=== PATIENT | female | born 1935 | race Caucasian/White ===

== ENCOUNTER 2018-12-18 10:54 | Inpatient (IN) | payer MEDICARE ==
--- NOTE | 2018-12-18 16:48 | PCM.HP ---
<Magda Varghese - Last Filed: 12/18/18 16:43> H&P History of Present Illness - General Date of Service: 12/18/18 Admit Problem/Dx: 83 year old female admitted to hospital for swing bed placement secondary to weakness. She had recently been in the [facility] for new onset of atrial fibrillation. That was able to be medically controlled; however, the patient remains too weak to perform her own ADLs. - Related Data Allergies/Adverse Reactions: Allergies Allergy/AdvReac Type Severity Reaction Status Date / Time No Known Allergies Allergy Unverified 12/18/18 15:41 Home Medications: Home Meds Amiodarone [Cordarone] 200 mg PO BID 12/18/18 [History] Apixaban [Eliquis] 2.5 mg PO BID 12/18/18 [History] Calcitriol 0.25 mcg PO DAILY 12/18/18 [History] Clopidogrel [Plavix] 75 mg PO DAILY 12/18/18 [History] Docusate Sodium [Colace] 100 mg PO BID 12/18/18 [History] Fluticasone Propionate [Flonase] 2 sprays NS DAILY 12/18/18 [History] Furosemide 40 mg PO DAILY 12/18/18 [History] Gabapentin [Neurontin] 100 mg PO BID 12/18/18 [History] Insulin Glarg,Human.Rec.Analog [Lantus Solostar] 22 unit SUBCUT BEDTIME [History] Insulin Lispro [HumaLOG] 4 unit SQ WITHDINNER 12/18/18 [History] Insulin Lispro [HumaLOG] 6 unit SQ WITHBREAKFAST 12/18/18 [History] Ipratropium [Atrovent HFA Inh] 2 puff INH QID PRN 12/18/18 [History] Levothyroxine [Synthroid] 88 mcg PO 0600 12/18/18 [History] Metoprolol Tartrate 25 mg PO BID 12/18/18 [History] Mirtazapine 30 mg PO BEDTIME 12/18/18 [History] Nicotine [Nicotine Patch] 21 mg TD DAILY 12/18/18 [History] Omeprazole 20 mg PO BID 12/18/18 [History] Polyethylene Glycol 3350 [MiraLAX] 17 gm PO DAILY PRN 12/18/18 [History] Travoprost [Travatan Z 0.004% Oph Soln] 1 drop EYEBOTH BEDTIME 12/18/18 [ History] atorvaSTATin [Lipitor] 80 mg PO BEDTIME 12/18/18 [History] tiZANidine [Zanaflex] 2 mg PO BEDTIME 12/18/18 [History] Social & Family History - Tobacco Use Smoking Status *Q: Former Smoker Years of Tobacco use: 60 Packs/Tins Daily: 1 Used Tobacco, but Quit: Yes Month/Year Tobacco Last Used: October 2018 Tobacco Use Comment: stopped smoking since she was on the nicotine patch Second Hand Smoke Exposure: No - Caffeine Use Caffeine Use: Reports: Coffee, Soda - Recreational Drug Use Recreational Drug Use: No H&P Review of Systems - Review of Systems: Review Of Systems: See Below General: Reports: Weakness. Denies: Fever, Chills HEENT: Reports: No Symptoms Pulmonary: Denies: Shortness of Breath, Cough Cardiovascular: Denies: Chest Pain, Palpitations Gastrointestinal: Denies: Abdominal Pain, Diarrhea, Nausea, Vomiting Genitourinary: Denies: Dysuria, Frequency, Burning Musculoskeletal: Reports: No Symptoms Skin: Reports: No Symptoms Psychiatric: Reports: No Symptoms Neurological: Reports: No Symptoms Exam - Exam Exam: See Below - Vital Signs Vital Signs: Last Vital Signs Temp 36.7 C 12/18/18 15:20 Pulse 77 12/18/18 15:20 Resp 18 12/18/18 15:20 BP 122/70 12/18/18 15:20 Pulse Ox 94 L 12/18/18 15:20 Weight: 129 lb - Exam Quality Assessment: Supplemental Oxygen General: Alert, Oriented HEENT: EOMI, TMs Clear Neck: Supple, Trachea Midline Lungs: Clear to Auscultation, Normal Respiratory Effort Cardiovascular: Regular Rate, Regular Rhythm, Normal S1, Normal S2 GI/Abdominal Exam: Normal Bowel Sounds, Soft, Non-Tender Back Exam: No: CVA Tenderness (R), CVA Tenderness (L) Extremities: No Pedal Edema - Problem List (1) Atrial fibrillation SNOMED Code(s): 68704585 ICD Code: I48.91 - UNSPECIFIED ATRIAL FIBRILLATION Status: Acute Current Visit: Yes (2) Diabetes SNOMED Code(s): 42419861 ICD Code: E11.9 - TYPE 2 DIABETES MELLITUS WITHOUT COMPLICATIONS Status: Acute Current Visit: Yes (3) Weakness SNOMED Code(s): 10798531 ICD Code: R53.1 - WEAKNESS Status: Acute Current Visit: Yes (4) Hypercholesteremia SNOMED Code(s): 15029194 ICD Code: E78.00 - PURE HYPERCHOLESTEROLEMIA, UNSPECIFIED Status: Acute Current Visit: Yes Problem List Initiated/Reviewed/Updated: Yes Orders Last 24hrs: 1. Swing bed placement 2. DNR/DNI 3. Up with assist 4. PT, OT 5. Diabetic diet 6. Continue home medications <Rory Smith - Last Filed: 12/19/18 16:42> H&P History of Present Illness - General Admit Problem/Dx: Admission Diagnosis/Problem Admission Diagnosis/Problem Rehabilitation therapy Exam - Vital Signs Vital Signs: Last Vital Signs Temp 97.7 F 12/19/18 07:29 Pulse 80 12/19/18 08:51 Resp 18 12/19/18 07:29 BP 113/60 12/19/18 08:51 Pulse Ox 94 L 12/19/18 07:29 - Patient Data Lab Results Last 24 hrs: Laboratory Results - last 24 hr 12/18/18 12/19/18 Range/Units 17:24 06:03 POC Glucose 278 H 151 H D (80-116) mg/dL - Problem List (1) Atrial fibrillation SNOMED Code(s): 18514197 ICD Code: I48.91 - UNSPECIFIED ATRIAL FIBRILLATION Status: Acute Current Visit: Yes (2) Weakness SNOMED Code(s): 18501904 ICD Code: R53.1 - WEAKNESS Status: Acute Current Visit: Yes Orders Last 24hrs: Active Orders 24 hr Category Date Time Status Patient Status [ADT] Routine ADT 12/18/18 16:51 Active Blood Glucose Check, Bedside [RC] BIDMEALS Care 12/18/18 16:51 Active Oxygen Therapy [RC] PRN Care 12/18/18 16:51 Active Up With Assistance [RC] ASDIRECTED Care 12/18/18 16:51 Active VTE/DVT Education [RC] Per Unit Routine Care 12/18/18 16:51 Active Vital Signs [RC] 08 Care 12/18/18 16:51 Active OT Evaluation and Treatment [CONS] Routine Cons 12/18/18 16:51 Active PT Evaluation and Treatment [CONS] Routine Cons 12/18/18 16:51 Active Consistent Carbohydrate Diet [DIET] Diet 12/18/18 Dinner Active Amiodarone [Cordarone] Med 12/18/18 21:00 Active 200 mg PO BID Apixaban [Eliquis] Med 12/18/18 21:00 Active 2.5 mg PO BID Calcitriol [Rocaltrol] Med 12/19/18 09:00 Active 0.25 mcg PO DAILY Clopidogrel [Plavix] Med 12/19/18 09:00 Active 75 mg PO DAILY Docusate Sodium [Colace] Med 12/18/18 21:00 Active 100 mg PO BID Fluticasone Propionate [Flonase] Med 12/19/18 09:00 Active 0 gm NASBOTH DAILY Furosemide [Lasix] Med 12/19/18 09:00 Active 40 mg PO DAILY Gabapentin [Neurontin] Med 12/18/18 21:00 Active 100 mg PO BID Insulin Glarg,Human.Rec.Analog [LantUS Solostar] Med 12/18/18 21:00 Active 22 units SUBCUT BEDTIME Insulin Lispro [HumaLOG] Med 12/18/18 18:00 Active 4 unit SUBCUT WITHDINNER Insulin Lispro [HumaLOG] Med 12/19/18 08:00 Active 6 unit SUBCUT WITHBREAKFAST Ipratropium [Atrovent HFA] Med 12/18/18 16:53 Active 0 gm INH QID PRN Levothyroxine [Synthroid] Med 12/19/18 06:00 Active 88 mcg PO 0600 Metoprolol Tartrate [Lopressor] Med 12/18/18 21:00 Active 25 mg PO BID Mirtazapine [Remeron] Med 12/18/18 21:00 Active 30 mg PO BEDTIME Nicotine [Habitrol] Med 12/19/18 09:00 Active 21 mg TRDERM DAILY Pantoprazole [ProTONIX] Med 12/18/18 21:00 Active 40 mg PO BID Polyethylene Glycol 3350 [MiraLAX] Med 12/18/18 16:53 Active 17 gm PO DAILY PRN Travoprost [Travatan Z 0.004% Ophth Soln] Med 12/18/18 21:00 Active 0 drop EYEBOTH BEDTIME atorvaSTATin [Lipitor] Med 12/18/18 21:00 Active 80 mg PO BEDTIME tiZANidine [Zanaflex] Med 12/18/18 21:00 Active 2 mg PO BEDTIME Resuscitation Status Routine Resus Stat 12/18/18 17:00 Ordered Medication Orders Amiodarone HCl (Cordarone) 200 mg PO BID [facility] Last Admin: 12/19/18 08:49 Dose: 200 mg Admin: 12/18/18 20:04 Dose: 200 mg Apixaban (Eliquis) 2.5 mg PO BID [facility] Last Admin: 12/19/18 08:49 Dose: 2.5 mg Admin: 12/18/18 20:04 Dose: 2.5 mg Atorvastatin Calcium (Lipitor) 80 mg PO BEDTIME [facility] Last Admin: 12/18/18 20:04 Dose: 80 mg Calcitriol (Rocaltrol) 0.25 mcg PO DAILY [facility] Last Admin: 12/19/18 08:52 Dose: 0.25 mcg Clopidogrel Bisulfate (Plavix) 75 mg PO DAILY [facility] Last Admin: 12/19/18 08:51 Dose: 75 mg Docusate Sodium (Colace) 100 mg PO BID [facility] Last Admin: 12/19/18 08:49 Dose: 100 mg Admin: 12/18/18 20:02 Dose: 100 mg Fluticasone Propionate (Flonase) 0 gm NASBOTH DAILY [facility] Last Admin: 12/19/18 08:50 Dose: 2 spray Furosemide (Lasix) 40 mg PO DAILY [facility] Last Admin: 12/19/18 08:51 Dose: 40 mg Gabapentin (Neurontin) 100 mg PO BID [facility] Last Admin: 12/19/18 08:54 Dose: 100 mg Admin: 12/18/18 20:06 Dose: 100 mg Insulin Glargine (Lantus Solostar) 22 units SUBCUT BEDTIME [facility] Last Admin: 12/18/18 20:22 Dose: 22 units Insulin Human Lispro (Humalog) 4 unit SUBCUT WITHDINNER [facility] Last Admin: 12/18/18 17:34 Dose: 4 unit Insulin Human Lispro (Humalog) 6 unit SUBCUT WITHBREAKFAST [facility] Last Admin: 12/19/18 08:48 Dose: 6 units Ipratropium [place] (Atrovent Hfa) 0 gm INH QID PRN PRN Reason: SHORTNESS OF BREATH/WHEEZING Levothyroxine Sodium (Synthroid) 88 mcg PO 0600 [facility] Last Admin: 12/19/18 06:01 Dose: 88 mcg Metoprolol Tartrate (Lopressor) 25 mg PO BID [facility] Last Admin: 12/19/18 08:51 Dose: 25 mg Admin: 12/18/18 20:09 Dose: 25 mg Mirtazapine (Remeron) 30 mg PO BEDTIME [facility] Last Admin: 12/18/18 20:10 Dose: 30 mg Nicotine (Habitrol) 21 mg TRDERM DAILY [facility] Last Admin: 12/19/18 08:50 Dose: 21 mg Travatan Z 0.004% (Ophth Soln *Ptom) 0 drop EYEBOTH BEDTIME [facility] Last Admin: 12/18/18 20:11 Dose: 1 drop Pantoprazole Sodium (Protonix) 40 mg PO BID [facility] Last Admin: 12/19/18 08:52 Dose: 40 mg Admin: 12/18/18 20:10 Dose: 40 mg Polyethylene Glycol (Miralax) 17 gm PO DAILY PRN PRN Reason: Constipation Tizanidine HCl (Zanaflex) 2 mg PO BEDTIME [facility] Last Admin: 12/18/18 20:12 Dose: 2 mg Assessment/Plan Comment:: I attest saw this patient and examined the patient.
[2018-12-18] MEDS ORDERED: Polyethylene Glycol 3350 Powder 17 GM Packet PO PRN (16:53)
[2018-12-18] MEDS ORDERED: IPRATROPIUM INH PRN (16:53)
[2018-12-18] MEDS: Insulin Lispro 100 Unit/ML 3 ML KwikPen SUBCUT SCH (17:34)
[2018-12-18] MEDS: Docusate Sodium 100 MG Cap PO SCH (20:02)
[2018-12-18] MEDS: Amiodarone 200 MG Tab PO SCH (20:04)
[2018-12-18] MEDS: atorvaSTATin 40 MG Tab PO SCH (20:04)
[2018-12-18] MEDS: Apixaban 5 MG Tab PO SCH (20:04)
[2018-12-18] MEDS: Gabapentin 100 MG Cap PO SCH (20:06)
[2018-12-18] MEDS: Metoprolol Tartrate 25 MG Tab PO SCH (20:09)
[2018-12-18] MEDS: Mirtazapine 30 MG Tab PO SCH (20:10)
[2018-12-18] MEDS: Pantoprazole 40 MG Tab.CR PO SCH (20:10)
[2018-12-18] MEDS: TRAVATAN Z 0.004% EYEBOTH SCH (20:11)
[2018-12-18] MEDS: tiZANidine 4 MG Tab PO SCH (20:12)
[2018-12-18] MEDS: Insulin Glargine,Human Rec. Analog 100 Units/ML 3 ML Pen SUBCUT SCH (20:22)
[2018-12-19] MEDS: Levothyroxine 88 MCG Tab PO SCH (06:01)
[2018-12-19] MEDS: Insulin Lispro 100 Unit/ML 3 ML KwikPen SUBCUT SCH ×2 (08:48→17:53)
[2018-12-19] MEDS: Apixaban 5 MG Tab PO SCH ×2 (08:49→21:02)
[2018-12-19] MEDS: Docusate Sodium 100 MG Cap PO SCH ×2 (08:49→21:02)
[2018-12-19] MEDS: Amiodarone 200 MG Tab PO SCH ×2 (08:49→21:02)
[2018-12-19] MEDS: Nicotine 21 MG/24 Hr Patch TRDERM SCH (08:50)
[2018-12-19] MEDS: Fluticasone Propionate Nasal Spray 16 GM Bottle NASBOTH SCH (08:50)
[2018-12-19] MEDS: Clopidogrel 75 MG Tab PO SCH (08:51)
[2018-12-19] MEDS: Metoprolol Tartrate 25 MG Tab PO SCH ×2 (08:51→21:03)
[2018-12-19] MEDS: Furosemide 40 MG Tab PO SCH (08:51)
[2018-12-19] MEDS: Calcitriol 0.25 MCG Cap PO SCH (08:52)
[2018-12-19] MEDS: Pantoprazole 40 MG Tab.CR PO SCH ×2 (08:52→21:02)
[2018-12-19] MEDS: Gabapentin 100 MG Cap PO SCH ×2 (08:54→21:01)
[2018-12-19] MEDS: atorvaSTATin 40 MG Tab PO SCH (21:02)
[2018-12-19] MEDS: Mirtazapine 30 MG Tab PO SCH (21:02)
[2018-12-19] MEDS: tiZANidine 4 MG Tab PO SCH (21:02)
[2018-12-19] MEDS: Insulin Glargine,Human Rec. Analog 100 Units/ML 3 ML Pen SUBCUT SCH (21:04)
[2018-12-19] MEDS: TRAVATAN Z 0.004% EYEBOTH SCH (21:06)
[2018-12-20] MEDS: Levothyroxine 88 MCG Tab PO SCH (06:36)
[2018-12-20] MEDS: Amiodarone 200 MG Tab PO SCH ×2 (08:17→20:47)
[2018-12-20] MEDS: Docusate Sodium 100 MG Cap PO SCH ×2 (08:17→20:47)
[2018-12-20] MEDS: Apixaban 5 MG Tab PO SCH ×2 (08:17→20:47)
[2018-12-20] MEDS: Clopidogrel 75 MG Tab PO SCH (08:18)
[2018-12-20] MEDS: Fluticasone Propionate Nasal Spray 16 GM Bottle NASBOTH SCH (08:18)
[2018-12-20] MEDS: Calcitriol 0.25 MCG Cap PO SCH (08:18)
[2018-12-20] MEDS: Furosemide 40 MG Tab PO SCH (08:18)
[2018-12-20] MEDS: Pantoprazole 40 MG Tab.CR PO SCH ×2 (08:18→20:48)
[2018-12-20] MEDS: Nicotine 21 MG/24 Hr Patch TRDERM SCH (08:19)
[2018-12-20] MEDS: Metoprolol Tartrate 25 MG Tab PO SCH ×2 (08:30→20:48)
[2018-12-20] MEDS: Insulin Lispro 100 Unit/ML 3 ML KwikPen SUBCUT SCH ×2 (08:32→18:08)
[2018-12-20] MEDS: Gabapentin 100 MG Cap PO SCH ×2 (08:35→20:49)
[2018-12-20] MEDS: atorvaSTATin 40 MG Tab PO SCH (20:47)
[2018-12-20] MEDS: Mirtazapine 30 MG Tab PO SCH (20:48)
[2018-12-20] MEDS: TRAVATAN Z 0.004% EYEBOTH SCH (20:49)
[2018-12-20] MEDS: tiZANidine 4 MG Tab PO SCH (20:49)
[2018-12-20] MEDS: Insulin Glargine,Human Rec. Analog 100 Units/ML 3 ML Pen SUBCUT SCH (20:56)
[2018-12-21] MEDS: Levothyroxine 88 MCG Tab PO SCH (05:43)
[2018-12-21] MEDS: Insulin Lispro 100 Unit/ML 3 ML KwikPen SUBCUT SCH (08:58)
[2018-12-21] MEDS: Docusate Sodium 100 MG Cap PO SCH (09:04)
[2018-12-21] MEDS: Apixaban 5 MG Tab PO SCH (09:05)
[2018-12-21] MEDS: Amiodarone 200 MG Tab PO SCH (09:05)
[2018-12-21] MEDS: Fluticasone Propionate Nasal Spray 16 GM Bottle NASBOTH SCH (09:05)
[2018-12-21] MEDS: Furosemide 40 MG Tab PO SCH (09:06)
[2018-12-21] MEDS: Metoprolol Tartrate 25 MG Tab PO SCH (09:06)
[2018-12-21] MEDS: Clopidogrel 75 MG Tab PO SCH (09:07)
[2018-12-21] MEDS: Calcitriol 0.25 MCG Cap PO SCH (09:07)
[2018-12-21] MEDS: Pantoprazole 40 MG Tab.CR PO SCH (09:07)
[2018-12-21] MEDS: Gabapentin 100 MG Cap PO SCH (09:10)
[2018-12-21] MEDS ORDERED: Nicotine 14 MG/24 Hr Patch TRDERM SCH (10:00)
--- NOTE | 2018-12-21 14:27 | DISCH ---
DISCHARGE DATE: 12/21/2018 HISTORY OF PRESENT ILLNESS: Giuliana Garcia is a delightful 83-year-old female admitted to swing bed. An acute care stay at [facility] in [place]. New onset atrial fibrillation. Controlled medically. Inability to continue her return to home status, impaired. During her hospital stay, she was all involved in OT, PT ambulated, medications were adjusted, no complicating health issues. LABORATORY STUDIES: Simply sugars 278, 151, 172, 105, and 229. Insulin adjusted accordingly. PHYSICAL EXAMINATION: VITAL SIGNS: 35.8, 90 and irregular, respirations 14, 95%. GENERAL: Bright, alert, awake, comfortable. NECK: Supple. Thyroid small. CHEST: Clear all lung to. Decreased breath sounds, both lung bases. HEART: Irregularly irregular at 90. ABDOMEN: Benign. EXTREMITIES: Well perfused. Minimal edema. ASSESSMENT: New onset atrial fibrillation, rate controlled. PLAN: Medications and care and treatment appropriate. She was discharged home in a timely fashion. She has an upcoming appointment with her medical provider in [place] at the end of December. SURGICAL PROCEDURES: None. CONSULTATIONS: None. /[id number] JEFF[place]/GISELLA
== END 2018-12-21 11:15 | disposition home or self-care (01) | DRG 948 ==
LOC: FB.MS 15:01
PROVIDERS: ADMIT Family Medicine; ATTEND Family Medicine
DX: R53.1 Weakness (principal); I48.91 Unspecified atrial fibrillation; E78.00 Pure hypercholesterolemia, unspecified; E11.9 Type 2 diabetes mellitus without complications; Z79.4 Long term (current) use of insulin; Z87.891 Personal history of nicotine dependence; Z79.01 Long term (current) use of anticoagulants
CPT/HCPCS: 82962; 97110-GO; 97116-GP; 97161-GP; 97165-GO; 97530-GO; 97535-GO; A9270-GY; J1815; J1815-GY

== ENCOUNTER 2019-09-06 13:00 | Emergency (ER) | payer MEDICARE ==
[2019-09-06] MEDS ORDERED: Acetaminophen 500 MG Tab PO ONE (13:21)
[2019-09-06] MEDS ORDERED: traMADol 50 MG Tab PO ONE (13:21)
--- NOTE | 2019-09-06 15:06 | EDM.PDOC ---
ED HPI GENERAL MEDICAL PROBLEM - General Chief Complaint: Back Pain or Injury Stated Complaint: FALL Time Seen by Provider: 09/06/19 13:05 Source of Information: Reports: Patient History Limitations: Reports: No Limitations - History of Present Illness INITIAL COMMENTS - FREE TEXT/NARRATIVE: Patient presented to the ED because of low back pain. She came out of her room, tripped and landed on her lower back. There was no LOC after the fall but c/o low back pain. back Pain Score (Numeric/FACES): 8 - Related Data Allergies Allergy/AdvReac Type Severity Reaction Status Date / Time No Known Allergies Allergy Unverified 12/18/18 15:41 Home Meds: Home Meds Amiodarone [Cordarone] 200 mg PO BID 12/18/18 [History] Apixaban [Eliquis] 2.5 mg PO BID 12/18/18 [History] Clopidogrel [Plavix] 75 mg PO DAILY 12/18/18 [History] Docusate Sodium [Colace] 100 mg PO BID 12/18/18 [History] Fluticasone Propionate [Flonase] 2 sprays NS DAILY 12/18/18 [History] Furosemide 40 mg PO DAILY 12/18/18 [History] Gabapentin [Neurontin] 100 mg PO BID 12/18/18 [History] Insulin Glarg,Human.Rec.Analog [Lantus Solostar] 22 unit SUBCUT BEDTIME [History] Insulin Lispro [Humalog] 4 unit SQ WITHDINNER 12/18/18 [History] Insulin Lispro [Humalog] 6 unit SQ WITHBREAKFAST 12/18/18 [History] Ipratropium [Atrovent HFA] 2 puff INH QID PRN 12/18/18 [History] Levothyroxine [Synthroid] 88 mcg PO 0600 12/18/18 [History] Metoprolol Tartrate 25 mg PO BID 12/18/18 [History] Mirtazapine 30 mg PO BEDTIME 12/18/18 [History] Omeprazole 20 mg PO BID 12/18/18 [History] Travoprost [Travatan Z 0.004% Ophth Soln] 1 drop EYEBOTH BEDTIME 12/18/18 [ History] atorvaSTATin [Lipitor] 80 mg PO BEDTIME 12/18/18 [History] calcitrioL [Calcitriol] 0.25 mcg PO DAILY 12/18/18 [History] polyethylene glycoL 3350 [MiraLAX] 17 gm PO DAILY PRN 12/18/18 [History] tiZANidine [Zanaflex] 2 mg PO BEDTIME 12/18/18 [History] Nicotine [Habitrol] 14 mg TRDERM DAILY #30 patch 12/21/18 [Rx] traMADol [Ultram] 100 mg PO Q8H PRN #15 tab 09/06/19 [Rx] Past Medical History HEENT History: Reports: Allergic Rhinitis, Glaucoma Cardiovascular History: Reports: Arrhythmia, CAD, High Cholesterol, Hypertension , Stents, Other (See Below) Other Cardiovascular History: carotid artery and celiac artery stenosis Respiratory History: Reports: COPD Gastrointestinal History: Reports: Gastritis, Irritable Bowel Syndrome, Other ( See Below) Other Gastrointestinal History: melena, gastric ulcer Genitourinary History: Reports: UTI, Recurrent, Other (See Below) Other Genitourinary History: renal artery stenosis [employer] History: Reports: , Spontaneous Musculoskeletal History: Reports: Back Pain, Chronic, Neck Pain, Chronic, Other (See Below) Other Musculoskeletal History: cervical spondylosis,cervicalgia, polymyalgia rheumatica,torsion dystonia Neurological History: Reports: Other (See Below) Other Neuro History: paresthesia Psychiatric History: Reports: Anxiety, Depression Endocrine/Metabolic History: Reports: Diabetes, Type II, Hypothyroidism Hematologic History: Reports: Anemia - Past Surgical History Head Surgeries/Procedures: Reports: None HEENT Surgical History: Reports: Tonsillectomy Cardiovascular Surgical History: Reports: Vascular Surgery Respiratory Surgical History: Reports: None GI Surgical History: Reports: Cholecystectomy Female Surgical History: Reports: Hysterectomy, Salpingo-Oophorectomy, Other (See Below) Other Female Surgeries/Procedures: hysterectomy with BSO Neurological Surgical History: Reports: C-Spine Other Neurological Surgeries/Procedures: spinal diskectomy cervical C5- C7 and fusion Musculoskeletal Surgical History: Reports: None Social & Family History - Family History Oncologic: Reports: Cervix - Caffeine Use Caffeine Use: Reports: Coffee, Soda ED ROS GENERAL - Review of Systems Review Of Systems: See Below Constitutional: Reports: No Symptoms HEENT: Reports: No Symptoms, Vertigo Cardiovascular: Reports: No Symptoms Endocrine: Reports: No Symptoms GI/Abdominal: Reports: No Symptoms : Reports: No Symptoms Musculoskeletal: Reports: Back Pain Skin: Reports: No Symptoms Neurological: Reports: No Symptoms Psychiatric: Reports: No Symptoms Hematologic/Lymphatic: Reports: No Symptoms Immunologic: Reports: No Symptoms ED EXAM,LOWER BACK PAIN/INJURY - Physical Exam Exam: See Below Exam Limited By: No Limitations General Appearance: Alert, No Apparent Distress Ears: Normal External Exam, Normal Canal, Hearing Grossly Normal Nose: Normal Inspection, Normal Mucosa, No Blood Throat/Mouth: Normal Inspection, Normal Lips, Normal Teeth, Normal Gums Head: Atraumatic, Normocephalic Neck: Normal Inspection, Supple, Non-Tender, Full Range of Motion Respiratory/Chest: No Respiratory Distress, Lungs Clear, Normal Breath Sounds Cardiovascular: Normal Peripheral Pulses, Regular Rate, Rhythm, No Edema, No Gallop, No JVD, No Murmur GI/Abdominal: Normal Bowel Sounds, Soft, Non-Tender, No Organomegaly, No Distention, No Abnormal Bruit Back Exam: Normal Inspection Extremities: Normal Inspection Neurological: Alert Course - Vital Signs Text/Narrative:: xray of the lumbar spine-neg tramadol 100 mg with tylenol 1000 mg po x1 with significant relief of her back pain Last Recorded V/S: Last Vital Signs Temp 36.8 C 09/06/19 15:30 Pulse 63 09/06/19 15:30 Resp 18 09/06/19 15:30 BP 129/70 09/06/19 15:30 Pulse Ox 93 L 09/06/19 15:30 - Orders/Labs/Meds Meds: Medications Discontinued Medications Generic Name Dose Route Start Last Admin Trade Name Freq PRN Reason Stop Dose Admin Acetaminophen 1,000 mg 09/06/19 13:21 09/06/19 13:54 Tylenol Extra Strength PO 09/06/19 13:22 1,000 mg ONETIME ONE Administration Tramadol HCl 100 mg 09/06/19 13:21 09/06/19 13:55 Ultram PO 09/06/19 13:22 100 mg ONETIME ONE Administration Departure - Departure Time of Disposition: 15:05 Disposition: Home, Self-Care 01 Condition: Good Clinical Impression: Lumbar sprain - Discharge Information Prescriptions: traMADol [Ultram] 100 mg PO Q8H PRN #15 tab PRN Reason: Pain Instructions: Low Back Sprain Referrals: Lemuel Willoughby MD [Primary Care Provider] - Forms: ED Department Discharge Additional Instructions: please read discharge instructions on low back sprain apply ice or heat whichever makes the pain feel better tramadol 100 mg with tylenol 1000 mg every 8 hours as needed for pain follow up as needed Sepsis Event Note - Evaluation Sepsis Screening Result: No Definite Risk - Focused Exam Date Exam was Performed: 09/08/19 Time Exam was Performed: 16:03
--- NOTE | 2019-09-06 15:14 | CR ---
INDICATION: Fall/low back pain. LUMBOSACRAL SPINE: Three views of the lumbosacral spine were obtained, 09/06/19 - no comparisons. Severe decrease in bone density suggests osteomalacia or possibly osteoporosis - correlate clinically. Vertebral body heights were well maintained without a definite acute fracture site or dislocation. Hypertrophic degenerative changes are noted in the upper to middle levels of [id number] degree and minimally at the lower lumbar levels. Slightly decreased disk space is suggested at L4-5, which may represent disk disease. Sclerosis is noted at the L5-S1 apophyseal joints of mild degree, also compatible with osteoarthritis. Sacroiliac joints appear to be fairly intact. Calcifications are noted in the abdominal aorta, iliac, and splenic arteries. Clips compatible with cholecystectomy are noted. Pattern of gas and feces is nonspecific. IMPRESSION: 1. No acute fracture or dislocation. 2. Demineralization. 3. DJD. 4. Probable disk disease L4-5. 5. ASD. 6. Post cholecystectomy. MTDD
== END 2019-09-06 15:35 | disposition home or self-care (01) ==
LOC: FB.ED 13:00
DX: S33.5XXA Sprain of ligaments of lumbar spine, initial encounter (principal); I10 Essential (primary) hypertension; E03.9 Hypothyroidism, unspecified; E11.9 Type 2 diabetes mellitus without complications; I25.10 Atherosclerotic heart disease of native coronary artery without angina pectoris; Z98.890 Other specified postprocedural states; Z79.899 Other long term (current) drug therapy; Z90.49 Acquired absence of other specified parts of digestive tract; Z79.4 Long term (current) use of insulin; W01.0XXA Fall on same level from slipping, tripping and stumbling without subsequent striking against object, initial encounter
CPT/HCPCS: 72100; 99284-25; A9270-GY

== ENCOUNTER 2019-09-13 11:06 | Inpatient (IN) | payer MEDICARE ==
--- NOTE | 2019-09-13 11:49 | PCM.HP.2 ---
H&P History of Present Illness - General Date of Service: 09/13/19 Admit Problem/Dx: Admission Diagnosis/Problem Admission Diagnosis/Problem Rehabilitation therapy Source of Information: Patient, Family, Provider - History of Present Illness Initial Comments - Free Text/Narative: Giuliana was admitted to [facility] in [place] for increased falls, acute on chronic kidney failure with Creatinine over 4, her baseline is 2.0. She had renal ultrasound which incidentally found liver nodules suspicious for metastatic disease. CT chest showed hilar mass adjacent to her heart and liver biopsy was done yesterday. Her kidney function has been improving back to baseline. Also had acute urinary retention and comes today with indwelling catheter. She is due to see Urology and Nephrology in 2 weeks, we will have to set these appts up for patient in [facility] closer to the time as they did not make them prior to discharge due to all travel restrictions. Biopsy results will be sent to her PCP Dr Willoughby at [facility] and he will be calling her daughter and setting up appointment with oncology. She has been anemic, received 1 unit of PRBCs, due to CBC on Monday. Eliquis was discontinued and plavix to be restarted on Monday. - Related Data Allergies/Adverse Reactions: Allergies Allergy/AdvReac Type Severity Reaction Status Date / Time No Known Allergies Allergy Unverified 12/18/18 15:41 Home Medications: Home Meds Amiodarone [Cordarone] 200 mg PO BID 12/18/18 [History] Apixaban [Eliquis] 2.5 mg PO BID 12/18/18 [History] Clopidogrel [Plavix] 75 mg PO DAILY 12/18/18 [History] Docusate Sodium [Colace] 100 mg PO BID 12/18/18 [History] Fluticasone Propionate [Flonase] 2 sprays NS DAILY 12/18/18 [History] Furosemide 40 mg PO DAILY 12/18/18 [History] Gabapentin [Neurontin] 100 mg PO BID 12/18/18 [History] Insulin Glarg,Human.Rec.Analog [Lantus Solostar] 22 unit SUBCUT BEDTIME [History] Insulin Lispro [Humalog] 4 unit SQ WITHDINNER 12/18/18 [History] Insulin Lispro [Humalog] 6 unit SQ WITHBREAKFAST 12/18/18 [History] Ipratropium [Atrovent HFA] 2 puff INH QID PRN 12/18/18 [History] Levothyroxine [Synthroid] 88 mcg PO 0600 12/18/18 [History] Metoprolol Tartrate 25 mg PO BID 12/18/18 [History] Mirtazapine 30 mg PO BEDTIME 12/18/18 [History] Omeprazole 20 mg PO BID 12/18/18 [History] Travoprost [Travatan Z 0.004% Ophth Soln] 1 drop EYEBOTH BEDTIME 12/18/18 [ History] atorvaSTATin [Lipitor] 80 mg PO BEDTIME 12/18/18 [History] calcitrioL [Calcitriol] 0.25 mcg PO DAILY 12/18/18 [History] polyethylene glycoL 3350 [MiraLAX] 17 gm PO DAILY PRN 12/18/18 [History] tiZANidine [Zanaflex] 2 mg PO BEDTIME 12/18/18 [History] Nicotine [Habitrol] 14 mg TRDERM DAILY #30 patch 12/21/18 [Rx] traMADol [Ultram] 100 mg PO Q8H PRN #15 tab 09/06/19 [Rx] Past Medical History HEENT History: Reports: Allergic Rhinitis, Glaucoma, Impaired Vision Cardiovascular History: Reports: Arrhythmia, CAD, Heart Failure, High Cholesterol, Hypertension, Stents, Other (See Below) Other Cardiovascular History: carotid artery and celiac artery stenosis Respiratory History: Reports: COPD, SOB Gastrointestinal History: Reports: Gastritis, Irritable Bowel Syndrome, Other ( See Below) Other Gastrointestinal History: melena, gastric ulcer Genitourinary History: Reports: Chronic Renal Insuffiency, UTI, Recurrent, Other (See Below) Other Genitourinary History: renal artery stenosis TILE FINISHER History: Reports: , Spontaneous Other OB/BYN History: Musculoskeletal History: Reports: Back Pain, Chronic, Neck Pain, Chronic, Other (See Below) Other Musculoskeletal History: cervical spondylosis,cervicalgia, polymyalgia rheumatica,torsion dystonia Neurological History: Reports: Other (See Below) Other Neuro History: paresthesia Psychiatric History: Reports: Anxiety, Depression Endocrine/Metabolic History: Reports: Diabetes, Type II, Hypothyroidism Hematologic History: Reports: Anemia, Blood Transfusion(s) Oncologic (Cancer) History: Reports: Liver, Lung, Metastatic - Infectious Disease History Infectious Disease History: Reports: C-Difficile, Measles, Mumps - Past Surgical History Head Surgeries/Procedures: Reports: None HEENT Surgical History: Reports: Adenoidectomy, Eye Surgery, Tonsillectomy Cardiovascular Surgical History: Reports: Vascular Surgery Respiratory Surgical History: Reports: None GI Surgical History: Reports: Cholecystectomy Female Surgical History: Reports: Hysterectomy, Salpingo-Oophorectomy, Other (See Below) Other Female Surgeries/Procedures: hysterectomy with BSO Neurological Surgical History: Reports: C-Spine, Lumbar Spine Other Neurological Surgeries/Procedures: spinal diskectomy cervical C5- C7 and fusion Musculoskeletal Surgical History: Reports: None Oncologic Surgical History: Reports: None Social & Family History - Family History Family Medical History: Noncontributory Oncologic: Reports: Cervix - Caffeine Use Caffeine Use: Reports: Coffee, Soda H&P Review of Systems - Review of Systems: Review Of Systems: See Below General: Reports: Fatigue. Denies: Fever, Chills, Decreased Appetite HEENT: Reports: No Symptoms Pulmonary: Reports: Shortness of Breath. Denies: Wheezing, Cough Cardiovascular: Reports: No Symptoms Gastrointestinal: Reports: Constipation (alternating diarrhea), Diarrhea. Denies: Abdominal Pain, Anorexia, Difficulty Swallowing Genitourinary: Reports: Retention (on acute admission), Other (jimenez) Musculoskeletal: Reports: Neck Pain, Back Pain Skin: Reports: Pallor Psychiatric: Reports: No Symptoms Neurological: Reports: No Symptoms Hematologic/Lymphatic: Reports: Anemia Exam - Exam Exam: See Below - Exam Quality Assessment: Supplemental Oxygen, Urinary Catheter General: Alert, Oriented, Cooperative. No: Mild Distress HEENT: PERRLA, Conjunctiva Clear Neck: Supple, Trachea Midline. No: Lymphadenopathy Lungs: Clear to Auscultation, Normal Respiratory Effort, Decreased Breath Sounds , Crackles. No: Wheezing Cardiovascular: Regular Rate, Irregular Rhythm GI/Abdominal Exam: Normal Bowel Sounds, Soft, Non-Tender, No Distention (Female) Exam: Deferred Rectal (Female) Exam: Deferred Extremities: No Pedal Edema Peripheral Pulses: 2+: Radial (L), Radial (R), Posterior Tibial (L), Posterior Tibial (R), Dorsalis Pedis (L), Dorsalis Pedis (R) Skin: Warm, Dry, Intact Neuro Extensive - Mental Status: Normal Mood/Affect, Normal Cognition *Q Meaningful Use (ADM) - VTE *Q VTE Anticoagulation Contraindications: Med/TX Not Indicated/Need - Problem List (1) Lung mass SNOMED Code(s): 770778312 ICD Code: R91.8 - OTHER NONSPECIFIC ABNORMAL FINDING OF LUNG FIELD Status: Acute Current Visit: Yes (2) Liver nodule SNOMED Code(s): 247151719 ICD Code: K76.89 - OTHER SPECIFIED DISEASES OF LIVER Status: Acute Current Visit: Yes (3) Anemia SNOMED Code(s): 954929016 ICD Code: D64.9 - ANEMIA, UNSPECIFIED Status: Acute Current Visit: Yes Qualifiers: Anemia type: due to chronic kidney disease (4) Indwelling Jimenez catheter present SNOMED Code(s): 276138730 ICD Code: Z96.0 - PRESENCE OF UROGENITAL IMPLANTS Status: Acute Current Visit: Yes Problem Details: secondary to urinary retention (5) COPD (chronic obstructive pulmonary disease) SNOMED Code(s): 21116934 ICD Code: J44.9 - CHRONIC OBSTRUCTIVE PULMONARY DISEASE, UNSPECIFIED Status : Chronic Current Visit: Yes (6) Chronic kidney disease, stage 4 (severe) SNOMED Code(s): 124988133 ICD Code: N18.4 - CHRONIC KIDNEY DISEASE, STAGE 4 (SEVERE) Status: Chronic Current Visit: Yes (7) Hypercholesteremia SNOMED Code(s): 98784091 ICD Code: E78.00 - PURE HYPERCHOLESTEROLEMIA, UNSPECIFIED Status: Chronic Current Visit: No (8) Atrial fibrillation SNOMED Code(s): 91977857 ICD Code: I48.91 - UNSPECIFIED ATRIAL FIBRILLATION Status: Chronic Current Visit: No (9) Diabetes SNOMED Code(s): 21643292 ICD Code: E11.9 - TYPE 2 DIABETES MELLITUS WITHOUT COMPLICATIONS Status: Chronic Current Visit: No Qualifiers: Diabetes mellitus type: type 2 Diabetes mellitus retirement insulin use: with human resources specialist use Problem List Initiated/Reviewed/Updated: Yes Orders Last 24hrs: Active Orders 24 hr Category Date Time Status Patient Status [ADT] Routine ADT 09/13/19 11:13 Active Blood Glucose Check, Bedside [] BIDMEALS Care 09/13/19 11:16 Active Height and Weight [RC] WEEKLY Care 09/13/19 11:13 Active Oxygen Therapy [] PRN Care 09/13/19 11:13 Active Up With Assistance [RC] ASDIRECTED Care 09/13/19 11:13 Active VTE/DVT Education [RC] Per Unit Routine Care 09/13/19 11:13 Active Vital Signs [RC] PER UNIT ROUTINE Care 09/13/19 11:13 Active OT Evaluation and Treatment [CONS] Routine Cons 09/13/19 11:16 Active PT Evaluation and Treatment [CONS] Routine Cons 09/13/19 11:16 Active Regular Diet [DIET] Diet 09/13/19 Lunch Active CBC WITH AUTO DIFF [HEME] Routine Lab 09/15/19 06:00 Ordered Anticoagulation Contraindications VTE [AST] Per Unit Oth 09/13/19 11:13 Ordered Routine Antiembolic Hose [OM.PC] Per Unit Routine Oth 09/13/19 11:14 Ordered Resuscitation Status Routine Resus Stat 09/13/19 11:13 Ordered Assessment/Plan Comment:: 1. Admit to swing bed for rehab services, PT/OT consult. 2. CBC on Monday. 3. Hold plavix until Monday. TEDs on Bilateral knee high. 4. Regular diet, may have potato chips. Accuchecks bid 5. Jimenez cares. 6. Discharge planning once get biopsy results and see oncology. Family is leaning toward hospice since the primary tumor in her lung is so close to her heart but they don't want to make that decision until they have talked with oncology. 7. DNR/DNI. - Mortality Measure Prognosis:: Poor
[2019-09-13] MEDS ORDERED: Albuterol/Ipratropium 3.0-0.5 MG/3 ML Neb Soln NEB PRN (12:11)
[2019-09-13] MEDS ORDERED: Polyethylene Glycol 3350 Powder 17 GM Packet PO PRN (12:17)
[2019-09-13] MEDS: Insulin Lispro 100 Unit/ML 3 ML KwikPen SUBCUT SCH ×3 (13:21→18:43)
[2019-09-13] MEDS: Ferrous Sulfate 325 MG Tab PO SCH (18:48)
[2019-09-13] MEDS ORDERED: Insulin Glargine,Human Rec. Analog 100 Units/ML 3 ML Pen SUBCUT SCH (21:00)
[2019-09-13] MEDS: Gabapentin 100 MG Cap PO SCH (21:33)
[2019-09-13] MEDS: Docusate Sodium 100 MG Cap PO SCH (21:34)
[2019-09-13] MEDS: Formoterol/Mometasone 100-5 MCG 8.8 GM Inhaler IH SCH (21:35)
[2019-09-13] MEDS: atorvaSTATin 40 MG Tab PO SCH (21:36)
[2019-09-13] MEDS: Famotidine 20 MG Tab PO SCH (21:40)
[2019-09-13] MEDS: Latanoprost 0.005% Ophth Soln 2.5 ML Bottle EYEBOTH SCH (21:41)
[2019-09-13] MEDS: Mirtazapine 30 MG Tab PO SCH (21:41)
[2019-09-13] MEDS: Metoprolol Tartrate 25 MG Tab PO SCH (21:43)
[2019-09-14] MEDS: Levothyroxine 88 MCG Tab PO SCH (06:16)
[2019-09-14] MEDS: Insulin Lispro 100 Unit/ML 3 ML KwikPen SUBCUT SCH ×4 (08:45→17:39)
[2019-09-14] MEDS: Gabapentin 100 MG Cap PO SCH ×2 (08:49→20:23)
[2019-09-14] MEDS: Sertraline 25 MG Tab PO SCH (08:50)
[2019-09-14] MEDS: Ferrous Sulfate 325 MG Tab PO SCH ×2 (08:50→17:42)
[2019-09-14] MEDS: Calcitriol 0.25 MCG Cap PO SCH (08:50)
[2019-09-14] MEDS: Metoprolol Tartrate 25 MG Tab PO SCH ×2 (08:50→20:25)
[2019-09-14] MEDS: Amiodarone 200 MG Tab PO SCH (08:51)
[2019-09-14] MEDS: Formoterol/Mometasone 100-5 MCG 8.8 GM Inhaler IH SCH ×2 (08:51→20:20)
[2019-09-14] MEDS: Fluticasone Propionate Nasal Spray 16 GM Bottle NASBOTH SCH (08:51)
[2019-09-14] MEDS: Docusate Sodium 100 MG Cap PO SCH ×2 (08:51→20:22)
--- NOTE | 2019-09-14 16:02 | PCM.SN ---
- Free Text/Narrative Note: S:Giuliana has history of gout, notified by nurse that she now has painful left great toe at joint. O: Left great toe at MTP joint, erythema, TTP, warmth. A: Acute gout flare P: Dexamethasone 4 mg daily x 3 doses due to her kidney function.
[2019-09-14] MEDS: Dexamethasone 4 MG Tab PO SCH (16:10)
[2019-09-14] MEDS: Levofloxacin 500 MG Tab PO SCH (16:10)
[2019-09-14] MEDS: Insulin Glargine,Human Rec. Analog 100 Units/ML 3 ML Pen SUBCUT SCH (20:19)
[2019-09-14] MEDS: Famotidine 20 MG Tab PO SCH (20:21)
[2019-09-14] MEDS: Latanoprost 0.005% Ophth Soln 2.5 ML Bottle EYEBOTH SCH (20:21)
[2019-09-14] MEDS: atorvaSTATin 40 MG Tab PO SCH (20:22)
[2019-09-14] MEDS: Mirtazapine 30 MG Tab PO SCH (20:26)
[2019-09-14] MEDS ORDERED: Insulin Glargine,Human Rec. Analog 100 Units/ML 3 ML Pen SUBCUT SCH (21:00)
[2019-09-15] MEDS: Levothyroxine 88 MCG Tab PO SCH (06:19)
[2019-09-15] MEDS: Ferrous Sulfate 325 MG Tab PO SCH ×2 (08:36→18:00)
[2019-09-15] MEDS: Dexamethasone 4 MG Tab PO SCH (08:36)
[2019-09-15] MEDS: Fluticasone Propionate Nasal Spray 16 GM Bottle NASBOTH SCH (08:36)
[2019-09-15] MEDS: Sertraline 25 MG Tab PO SCH (08:36)
[2019-09-15] MEDS: Docusate Sodium 100 MG Cap PO SCH ×2 (08:36→20:40)
[2019-09-15] MEDS: Calcitriol 0.25 MCG Cap PO SCH (08:36)
[2019-09-15] MEDS: Gabapentin 100 MG Cap PO SCH ×2 (08:36→20:39)
[2019-09-15] MEDS: Metoprolol Tartrate 25 MG Tab PO SCH ×2 (08:36→20:38)
[2019-09-15] MEDS: Insulin Lispro 100 Unit/ML 3 ML KwikPen SUBCUT SCH ×4 (08:37→18:01)
[2019-09-15] MEDS: Formoterol/Mometasone 100-5 MCG 8.8 GM Inhaler IH SCH ×2 (08:37→20:36)
[2019-09-15] MEDS: Amiodarone 200 MG Tab PO SCH (08:37)
[2019-09-15] MEDS: Clopidogrel 75 MG Tab PO SCH (08:37)
[2019-09-15] MEDS: Latanoprost 0.005% Ophth Soln 2.5 ML Bottle EYEBOTH SCH (20:37)
[2019-09-15] MEDS: Mirtazapine 30 MG Tab PO SCH (20:38)
[2019-09-15] MEDS: Famotidine 20 MG Tab PO SCH (20:40)
[2019-09-15] MEDS: atorvaSTATin 40 MG Tab PO SCH (20:40)
[2019-09-15] MEDS: Insulin Glargine,Human Rec. Analog 100 Units/ML 3 ML Pen SUBCUT SCH (20:41)
[2019-09-16] MEDS: Levothyroxine 88 MCG Tab PO SCH (06:04)
[2019-09-16] MEDS: Amiodarone 200 MG Tab PO SCH (08:00)
[2019-09-16] MEDS: Docusate Sodium 100 MG Cap PO SCH ×2 (08:00→20:57)
[2019-09-16] MEDS: Ferrous Sulfate 325 MG Tab PO SCH ×2 (08:00→18:40)
[2019-09-16] MEDS: Calcitriol 0.25 MCG Cap PO SCH (08:00)
[2019-09-16] MEDS: Clopidogrel 75 MG Tab PO SCH (08:00)
[2019-09-16] MEDS: Sertraline 25 MG Tab PO SCH (08:01)
[2019-09-16] MEDS: Formoterol/Mometasone 100-5 MCG 8.8 GM Inhaler IH SCH ×2 (08:03→20:59)
[2019-09-16] MEDS: Gabapentin 100 MG Cap PO SCH ×2 (08:03→21:03)
[2019-09-16] MEDS: Dexamethasone 4 MG Tab PO SCH (08:03)
[2019-09-16] MEDS: Metoprolol Tartrate 25 MG Tab PO SCH ×2 (08:03→20:56)
[2019-09-16] MEDS: Insulin Lispro 100 Unit/ML 3 ML KwikPen SUBCUT SCH ×4 (08:04→18:39)
[2019-09-16] MEDS: Fluticasone Propionate Nasal Spray 16 GM Bottle NASBOTH SCH (08:04)
[2019-09-16] MEDS: Levofloxacin 500 MG Tab PO SCH (16:50)
[2019-09-16] MEDS: Famotidine 20 MG Tab PO SCH (20:57)
[2019-09-16] MEDS: atorvaSTATin 40 MG Tab PO SCH (20:57)
[2019-09-16] MEDS: Mirtazapine 30 MG Tab PO SCH (20:57)
[2019-09-16] MEDS: Insulin Glargine,Human Rec. Analog 100 Units/ML 3 ML Pen SUBCUT SCH (20:59)
[2019-09-16] MEDS: Latanoprost 0.005% Ophth Soln 2.5 ML Bottle EYEBOTH SCH (21:03)
[2019-09-17] MEDS: Levothyroxine 88 MCG Tab PO SCH (06:19)
[2019-09-17] MEDS: Amiodarone 200 MG Tab PO SCH (08:52)
[2019-09-17] MEDS: Ferrous Sulfate 325 MG Tab PO SCH ×2 (08:52→17:17)
[2019-09-17] MEDS: Docusate Sodium 100 MG Cap PO SCH ×2 (08:52→20:01)
[2019-09-17] MEDS: Fluticasone Propionate Nasal Spray 16 GM Bottle NASBOTH SCH (08:53)
[2019-09-17] MEDS: Metoprolol Tartrate 25 MG Tab PO SCH ×2 (08:53→20:23)
[2019-09-17] MEDS: Formoterol/Mometasone 100-5 MCG 8.8 GM Inhaler IH SCH ×2 (08:53→20:01)
[2019-09-17] MEDS: Sertraline 25 MG Tab PO SCH (08:54)
[2019-09-17] MEDS: Allopurinol 100 MG Tab PO SCH (08:55)
[2019-09-17] MEDS: Clopidogrel 75 MG Tab PO SCH (08:55)
[2019-09-17] MEDS: Calcitriol 0.25 MCG Cap PO SCH (08:55)
[2019-09-17] MEDS: Gabapentin 100 MG Cap PO SCH ×2 (08:58→20:02)
[2019-09-17] MEDS: Insulin Lispro 100 Unit/ML 3 ML KwikPen SUBCUT SCH ×4 (08:58→17:16)
[2019-09-17] MEDS: Mirtazapine 30 MG Tab PO SCH (20:02)
[2019-09-17] MEDS: Famotidine 20 MG Tab PO SCH (20:02)
[2019-09-17] MEDS: atorvaSTATin 40 MG Tab PO SCH (20:02)
[2019-09-17] MEDS: Latanoprost 0.005% Ophth Soln 2.5 ML Bottle EYEBOTH SCH (20:03)
[2019-09-17] MEDS: Insulin Glargine,Human Rec. Analog 100 Units/ML 3 ML Pen SUBCUT SCH (20:24)
[2019-09-18] MEDS: Levothyroxine 88 MCG Tab PO SCH (06:39)
[2019-09-18] MEDS: Insulin Lispro 100 Unit/ML 3 ML KwikPen SUBCUT SCH ×4 (08:10→17:58)
[2019-09-18] MEDS: Ferrous Sulfate 325 MG Tab PO SCH ×2 (08:55→17:56)
[2019-09-18] MEDS: Docusate Sodium 100 MG Cap PO SCH ×2 (09:14→21:50)
[2019-09-18] MEDS: Amiodarone 200 MG Tab PO SCH (09:14)
[2019-09-18] MEDS: Formoterol/Mometasone 100-5 MCG 8.8 GM Inhaler IH SCH ×2 (09:14→21:49)
[2019-09-18] MEDS: Fluticasone Propionate Nasal Spray 16 GM Bottle NASBOTH SCH (09:15)
[2019-09-18] MEDS: Metoprolol Tartrate 25 MG Tab PO SCH ×2 (09:15→21:50)
[2019-09-18] MEDS: Clopidogrel 75 MG Tab PO SCH (09:16)
[2019-09-18] MEDS: Calcitriol 0.25 MCG Cap PO SCH (09:16)
[2019-09-18] MEDS: Sertraline 25 MG Tab PO SCH (09:22)
[2019-09-18] MEDS: Allopurinol 100 MG Tab PO SCH (09:23)
[2019-09-18] MEDS: Gabapentin 100 MG Cap PO SCH ×2 (09:23→21:52)
[2019-09-18] MEDS: atorvaSTATin 40 MG Tab PO SCH (21:50)
[2019-09-18] MEDS: Famotidine 20 MG Tab PO SCH (21:52)
[2019-09-18] MEDS: Latanoprost 0.005% Ophth Soln 2.5 ML Bottle EYEBOTH SCH (21:53)
[2019-09-18] MEDS: Mirtazapine 30 MG Tab PO SCH (21:53)
[2019-09-18] MEDS: Insulin Glargine,Human Rec. Analog 100 Units/ML 3 ML Pen SUBCUT SCH (21:59)
[2019-09-19] MEDS: Levothyroxine 88 MCG Tab PO SCH (06:34)
[2019-09-19] MEDS: Insulin Lispro 100 Unit/ML 3 ML KwikPen SUBCUT SCH ×4 (09:01→19:26)
[2019-09-19] MEDS: Ferrous Sulfate 325 MG Tab PO SCH ×2 (09:38→17:17)
[2019-09-19] MEDS: Docusate Sodium 100 MG Cap PO SCH ×2 (09:38→21:19)
[2019-09-19] MEDS: Calcitriol 0.25 MCG Cap PO SCH (09:39)
[2019-09-19] MEDS: Clopidogrel 75 MG Tab PO SCH (09:39)
[2019-09-19] MEDS: Allopurinol 100 MG Tab PO SCH (09:40)
[2019-09-19] MEDS: Sertraline 25 MG Tab PO SCH (09:40)
[2019-09-19] MEDS: Metoprolol Tartrate 25 MG Tab PO SCH ×2 (09:41→21:19)
[2019-09-19] MEDS: Formoterol/Mometasone 100-5 MCG 8.8 GM Inhaler IH SCH ×2 (09:41→21:19)
[2019-09-19] MEDS: Amiodarone 200 MG Tab PO SCH (09:41)
[2019-09-19] MEDS: Fluticasone Propionate Nasal Spray 16 GM Bottle NASBOTH SCH (09:41)
[2019-09-19] MEDS: Gabapentin 100 MG Cap PO SCH ×2 (10:22→21:20)
[2019-09-19] MEDS: atorvaSTATin 40 MG Tab PO SCH (21:19)
[2019-09-19] MEDS: Mirtazapine 30 MG Tab PO SCH (21:20)
[2019-09-19] MEDS: Famotidine 20 MG Tab PO SCH (21:20)
[2019-09-19] MEDS: Latanoprost 0.005% Ophth Soln 2.5 ML Bottle EYEBOTH SCH (21:20)
[2019-09-19] MEDS: Insulin Glargine,Human Rec. Analog 100 Units/ML 3 ML Pen SUBCUT SCH (21:25)
[2019-09-20] MEDS: Levothyroxine 88 MCG Tab PO SCH (05:39)
[2019-09-20] MEDS: Ferrous Sulfate 325 MG Tab PO SCH ×2 (09:01→17:11)
[2019-09-20] MEDS: Formoterol/Mometasone 100-5 MCG 8.8 GM Inhaler IH SCH ×2 (09:02→20:23)
[2019-09-20] MEDS: Amiodarone 200 MG Tab PO SCH (09:02)
[2019-09-20] MEDS: Docusate Sodium 100 MG Cap PO SCH ×2 (09:02→20:23)
[2019-09-20] MEDS: Fluticasone Propionate Nasal Spray 16 GM Bottle NASBOTH SCH (09:03)
[2019-09-20] MEDS: Metoprolol Tartrate 25 MG Tab PO SCH ×2 (09:04→20:24)
[2019-09-20] MEDS: Allopurinol 100 MG Tab PO SCH (09:12)
[2019-09-20] MEDS: Clopidogrel 75 MG Tab PO SCH (09:12)
[2019-09-20] MEDS: Gabapentin 100 MG Cap PO SCH ×2 (09:12→20:23)
[2019-09-20] MEDS: Calcitriol 0.25 MCG Cap PO SCH (09:13)
[2019-09-20] MEDS: Sertraline 25 MG Tab PO SCH (09:13)
[2019-09-20] MEDS: Insulin Lispro 100 Unit/ML 3 ML KwikPen SUBCUT SCH ×4 (09:14→18:07)
--- NOTE | 2019-09-20 12:02 | PN ---
DATE SEEN: 09/20/2019 SUBJECTIVE: Giuliana Garcia is an 84-year-old female, admitted recently to [facility]. Issues and implications of probably metastatic cancer. Squamous cell carcinoma complicated, hospice and home treatment upcoming and planned. Does not appear to be in much great discomfort. LABORATORY STUDIES: Sugars only. OBJECTIVE: VITAL SIGNS: 36.6, 65, 155/72, 18, 93% on 2 L. GENERAL: Frail female, cooperative, conversant. Speech was a little bit gated. NECK: Benign. Thyroid small. CHEST: Some diffuse wheezing. Coarse rhonchi. HEART: No ectopy or murmur. ABDOMEN: Benign. Complicated health issues, squamous cell carcinoma, likely metastatic. PLAN: Support measures in place, plans for discharge and care as indicated. /[id number] JEFFERSON/GISELLA
[2019-09-20] MEDS: Famotidine 20 MG Tab PO SCH (20:23)
[2019-09-20] MEDS: Mirtazapine 30 MG Tab PO SCH (20:23)
[2019-09-20] MEDS: atorvaSTATin 40 MG Tab PO SCH (20:23)
[2019-09-20] MEDS: Latanoprost 0.005% Ophth Soln 2.5 ML Bottle EYEBOTH SCH (20:24)
[2019-09-20] MEDS: Insulin Glargine,Human Rec. Analog 100 Units/ML 3 ML Pen SUBCUT SCH (20:29)
[2019-09-21] MEDS: Levothyroxine 88 MCG Tab PO SCH (05:43)
[2019-09-21] MEDS: Ferrous Sulfate 325 MG Tab PO SCH ×2 (07:51→17:33)
[2019-09-21] MEDS: Insulin Lispro 100 Unit/ML 3 ML KwikPen SUBCUT SCH ×4 (07:52→17:33)
[2019-09-21] MEDS: Gabapentin 100 MG Cap PO SCH ×2 (09:10→20:29)
[2019-09-21] MEDS: Amiodarone 200 MG Tab PO SCH (09:16)
[2019-09-21] MEDS: Sertraline 25 MG Tab PO SCH (09:16)
[2019-09-21] MEDS: Calcitriol 0.25 MCG Cap PO SCH (09:16)
[2019-09-21] MEDS: Fluticasone Propionate Nasal Spray 16 GM Bottle NASBOTH SCH (09:17)
[2019-09-21] MEDS: Clopidogrel 75 MG Tab PO SCH (09:17)
[2019-09-21] MEDS: Formoterol/Mometasone 100-5 MCG 8.8 GM Inhaler IH SCH ×2 (09:18→20:21)
[2019-09-21] MEDS: Docusate Sodium 100 MG Cap PO SCH ×2 (09:18→20:21)
[2019-09-21] MEDS: Metoprolol Tartrate 25 MG Tab PO SCH ×2 (09:19→20:21)
[2019-09-21] MEDS: Allopurinol 100 MG Tab PO SCH (09:19)
--- NOTE | 2019-09-21 14:24 | PN ---
DATE SEEN: 09/21/2019 SUBJECTIVE: Ms. Giuliana Garcia is an 84-year-old, female, admitted with general malaise, recurrent falls. Has diagnosis of lung carcinoma. Present plans in place, moderate through the weekend, planned discharge to [facility]. Daughter will live with her if allowed, visitors not appropriate. Voices no particular complaints. LABORATORY STUDIES: Glucose noted at 140 and 293. PHYSICAL EXAMINATION: VITAL SIGNS: 36.6, 64, 150/67, 18, 94% on 2 L. GENERAL: Soft spoken, appropriate at the time of conversation. NECK: Benign. CHEST: Decreased breath sounds and coarse rhonchi. HEART: Occasional ectopy and soft murmur. ABDOMEN: Benign. ASSESSMENT: Squamous cell carcinoma of lung. PLAN: Comfort measures, PT/OT, discharge plans in place. /[id number] JEFFERSON/GISELLA
[2019-09-21] MEDS: Acetaminophen 325 MG Tab PO PRN (20:09)
[2019-09-21] MEDS: Famotidine 20 MG Tab PO SCH (20:21)
[2019-09-21] MEDS: atorvaSTATin 40 MG Tab PO SCH (20:21)
[2019-09-21] MEDS: Latanoprost 0.005% Ophth Soln 2.5 ML Bottle EYEBOTH SCH (20:22)
[2019-09-21] MEDS: Mirtazapine 30 MG Tab PO SCH (20:23)
[2019-09-21] MEDS: Insulin Glargine,Human Rec. Analog 100 Units/ML 3 ML Pen SUBCUT SCH (20:25)
[2019-09-22] MEDS: Levothyroxine 88 MCG Tab PO SCH (07:41)
[2019-09-22] MEDS: Ferrous Sulfate 325 MG Tab PO SCH ×2 (08:00→17:23)
[2019-09-22] MEDS: Insulin Lispro 100 Unit/ML 3 ML KwikPen SUBCUT SCH ×4 (08:01→17:22)
[2019-09-22] MEDS: Amiodarone 200 MG Tab PO SCH (08:41)
[2019-09-22] MEDS: Calcitriol 0.25 MCG Cap PO SCH (08:41)
[2019-09-22] MEDS: Formoterol/Mometasone 100-5 MCG 8.8 GM Inhaler IH SCH ×2 (08:41→20:34)
[2019-09-22] MEDS: Acetaminophen 325 MG Tab PO PRN (08:41)
[2019-09-22] MEDS: Sertraline 25 MG Tab PO SCH (08:41)
[2019-09-22] MEDS: Metoprolol Tartrate 25 MG Tab PO SCH ×2 (08:42→20:35)
[2019-09-22] MEDS: Clopidogrel 75 MG Tab PO SCH (08:42)
[2019-09-22] MEDS: Gabapentin 100 MG Cap PO SCH ×2 (08:43→20:36)
[2019-09-22] MEDS: Fluticasone Propionate Nasal Spray 16 GM Bottle NASBOTH SCH (08:43)
[2019-09-22] MEDS: Docusate Sodium 100 MG Cap PO SCH ×2 (08:46→20:34)
[2019-09-22] MEDS: Allopurinol 100 MG Tab PO SCH (08:46)
--- NOTE | 2019-09-22 11:30 | PN ---
DATE SEEN: 09/22/2019 SUBJECTIVE: Lisha Garcia is a young lady under support services swing bed. Recent diagnosis of squamous cell carcinoma. Plan is for hospice and home treatment. She is back to [facility]. LABORATORY STUDIES: Sugar is noted. OBJECTIVE: VITAL SIGNS: 36.5, 127/57, 18, 98% on 2 L. GENERAL: Appears comfortable. Soft spoken. NECK: Benign. Thyroid small. CHEST: Decreased breath sounds. Coarse rhonchi, but reasonably clear. HEART: Regular. ABDOMEN: Benign. ASSESSMENT: 1. Complicated weakness. 2. New diagnosis of lung carcinoma. PLAN: Support measures in place. Plan to return to [facility]. Daughter to call [facility]. /[id number] /GISELLA
[2019-09-22] MEDS: Insulin Glargine,Human Rec. Analog 100 Units/ML 3 ML Pen SUBCUT SCH (20:26)
[2019-09-22] MEDS: atorvaSTATin 40 MG Tab PO SCH (20:34)
[2019-09-22] MEDS: Latanoprost 0.005% Ophth Soln 2.5 ML Bottle EYEBOTH SCH (20:36)
[2019-09-22] MEDS: Mirtazapine 30 MG Tab PO SCH (20:36)
[2019-09-22] MEDS: Famotidine 20 MG Tab PO SCH (20:36)
[2019-09-23] MEDS: Levothyroxine 88 MCG Tab PO SCH (06:55)
[2019-09-23] MEDS: Docusate Sodium 100 MG Cap PO SCH ×2 (08:23→20:38)
[2019-09-23] MEDS: Clopidogrel 75 MG Tab PO SCH (08:23)
[2019-09-23] MEDS: Amiodarone 200 MG Tab PO SCH (08:23)
[2019-09-23] MEDS: Ferrous Sulfate 325 MG Tab PO SCH ×2 (08:24→17:24)
[2019-09-23] MEDS: Fluticasone Propionate Nasal Spray 16 GM Bottle NASBOTH SCH (08:24)
[2019-09-23] MEDS: Formoterol/Mometasone 100-5 MCG 8.8 GM Inhaler IH SCH ×2 (08:24→20:38)
[2019-09-23] MEDS: Metoprolol Tartrate 25 MG Tab PO SCH ×2 (08:25→20:38)
[2019-09-23] MEDS: Insulin Lispro 100 Unit/ML 3 ML KwikPen SUBCUT SCH ×4 (08:26→18:36)
[2019-09-23] MEDS: Allopurinol 100 MG Tab PO SCH (09:00)
[2019-09-23] MEDS: Gabapentin 100 MG Cap PO SCH ×2 (09:00→20:39)
[2019-09-23] MEDS: Calcitriol 0.25 MCG Cap PO SCH (09:00)
[2019-09-23] MEDS: Sertraline 25 MG Tab PO SCH (09:00)
--- NOTE | 2019-09-23 11:16 | PN ---
DATE SEEN: 09/23/2019 SUBJECTIVE: Giuliana Garcia is an 84-year-old female, admitted with swing bed for rehab purposes. Recent diagnosis of squamous cell carcinoma. No treatment planned. She appears to be otherwise comfortable and in good spirits. LABORATORY STUDIES: Glucose is comfortable. OBJECTIVE: VITAL SIGNS: 151/69, 63 is the pulse, 15 is the respiration, O2 saturation 96% on 2 L. GENERAL: Appears comfortable. Speech is fluent. Conduct appropriate. NECK: Benign. No JVD. CHEST: Clear in all lung to. HEART: No ectopy or murmur. ABDOMEN: Benign. ASSESSMENT: Squamous cell carcinoma under evaluation. PLAN: No treatment plan. Plan to discharge home with hospice at [facility], caregivers, and daughter. /[id number] /GISELLA
[2019-09-23] MEDS: predniSONE 20 MG Tab PO SCH (11:30)
[2019-09-23] MEDS ORDERED: Indomethacin 25 MG Cap PO SCH (12:00)
[2019-09-23] MEDS: Acetaminophen 325 MG Tab PO PRN ×2 (17:20→20:42)
[2019-09-23] MEDS: atorvaSTATin 40 MG Tab PO SCH (20:38)
[2019-09-23] MEDS: Famotidine 20 MG Tab PO SCH (20:40)
[2019-09-23] MEDS: Insulin Glargine,Human Rec. Analog 100 Units/ML 3 ML Pen SUBCUT SCH (20:40)
[2019-09-23] MEDS: Mirtazapine 30 MG Tab PO SCH (20:41)
[2019-09-23] MEDS: Latanoprost 0.005% Ophth Soln 2.5 ML Bottle EYEBOTH SCH (20:47)
[2019-09-23] MEDS ORDERED: Insulin Lispro 100 Unit/ML 3 ML KwikPen SUBCUT ONE (21:50)
[2019-09-24] MEDS ORDERED: Insulin Lispro 100 Unit/ML 3 ML KwikPen SUBCUT ONE (01:15)
[2019-09-24] MEDS: Levothyroxine 88 MCG Tab PO SCH (05:22)
[2019-09-24] MEDS: predniSONE 20 MG Tab PO SCH (08:11)
[2019-09-24] MEDS: Ferrous Sulfate 325 MG Tab PO SCH ×2 (08:11→18:01)
[2019-09-24] MEDS: Docusate Sodium 100 MG Cap PO SCH ×2 (08:11→20:03)
[2019-09-24] MEDS: Amiodarone 200 MG Tab PO SCH (08:12)
[2019-09-24] MEDS: Formoterol/Mometasone 100-5 MCG 8.8 GM Inhaler IH SCH ×2 (08:12→20:04)
[2019-09-24] MEDS: Fluticasone Propionate Nasal Spray 16 GM Bottle NASBOTH SCH (08:13)
[2019-09-24] MEDS: Metoprolol Tartrate 25 MG Tab PO SCH ×2 (08:13→20:10)
[2019-09-24] MEDS: Gabapentin 100 MG Cap PO SCH ×2 (08:20→20:09)
[2019-09-24] MEDS: Clopidogrel 75 MG Tab PO SCH (08:21)
[2019-09-24] MEDS: Sertraline 25 MG Tab PO SCH (08:21)
[2019-09-24] MEDS: Calcitriol 0.25 MCG Cap PO SCH (08:21)
[2019-09-24] MEDS: Allopurinol 100 MG Tab PO SCH (08:22)
[2019-09-24] MEDS: Insulin Lispro 100 Unit/ML 3 ML KwikPen SUBCUT SCH ×4 (08:24→18:06)
--- NOTE | 2019-09-24 12:17 | PN ---
DATE SEEN: 09/24/2019 SUBJECTIVE: Giuliana Garcia is an 84-year-old female, in swing bed. New diagnosis of lung cancer. Plan for discharge on 09/25/2019 to [facility]. The gouty left toe appears to be improved. Blood sugars elevated. We will reduce the prednisone to 10 mg daily. Otherwise, doing well. OBJECTIVE: GENERAL: Appears comfortable. NECK: Benign. Thyroid small. CHEST: Clear in all lung to. HEART: No ectopy or murmur. ABDOMEN: Benign. ASSESSMENT: 1. Profound weakness. 2. New diagnosis of lung cancer. PLAN: Discharge planning tomorrow, hospice to be involved. /[id number] JEFFERSON/GISELLA
[2019-09-24] MEDS: Latanoprost 0.005% Ophth Soln 2.5 ML Bottle EYEBOTH SCH (20:05)
[2019-09-24] MEDS: atorvaSTATin 40 MG Tab PO SCH (20:06)
[2019-09-24] MEDS: Mirtazapine 30 MG Tab PO SCH (20:08)
[2019-09-24] MEDS: Famotidine 20 MG Tab PO SCH (20:08)
[2019-09-24] MEDS: Insulin Glargine,Human Rec. Analog 100 Units/ML 3 ML Pen SUBCUT SCH (20:14)
[2019-09-25] MEDS ORDERED: Insulin Lispro 100 Unit/ML 3 ML KwikPen SUBCUT ONE (01:35)
[2019-09-25] MEDS: Levothyroxine 88 MCG Tab PO SCH (05:32)
[2019-09-25] MEDS ORDERED: predniSONE 10 MG Tab PO SCH (09:00)
[2019-09-25] MEDS: Acetaminophen 325 MG Tab PO PRN (09:01)
[2019-09-25] MEDS: Sertraline 25 MG Tab PO SCH (09:02)
[2019-09-25] MEDS: Gabapentin 100 MG Cap PO SCH (09:02)
[2019-09-25] MEDS: Allopurinol 100 MG Tab PO SCH (09:03)
[2019-09-25] MEDS: Amiodarone 200 MG Tab PO SCH (09:04)
[2019-09-25] MEDS: Docusate Sodium 100 MG Cap PO SCH (09:04)
[2019-09-25] MEDS: Clopidogrel 75 MG Tab PO SCH (09:07)
[2019-09-25] MEDS: Ferrous Sulfate 325 MG Tab PO SCH (09:11)
[2019-09-25] MEDS: Insulin Lispro 100 Unit/ML 3 ML KwikPen SUBCUT SCH (09:13)
[2019-09-25] MEDS: Fluticasone Propionate Nasal Spray 16 GM Bottle NASBOTH SCH (09:13)
[2019-09-25] MEDS: Formoterol/Mometasone 100-5 MCG 8.8 GM Inhaler IH SCH (09:13)
[2019-09-25] MEDS: Metoprolol Tartrate 25 MG Tab PO SCH (09:14)
[2019-09-25] MEDS: Calcitriol 0.25 MCG Cap PO SCH (09:15)
--- NOTE | 2019-09-25 12:43 | DISCH ---
DISCHARGE DATE: 09/25/2019 HISTORY OF PRESENT ILLNESS: Giuliana Garcia is a delightful 84-year-old female, admitted to swing bed from [facility] in [place]. She presented there with recurrent falls, complicated kidney failure. Was found to have probably metastatic squamous cell carcinoma. Kidney function improved, was transferred to swing bed for intervention care and treatment. Had been given some blood. Had a short-term stay here. During her stay, PT/OT was involved, she made good progress, supplemental O2 was appropriate, and appeared to get stronger. Given circumstances and well being, she will be discharged home under the care of [facility] and the assistance of her daughter who will be living with her. Hospice will be involved, complementary care and well being. SURGICAL PROCEDURES: None. CONSULTATION: None. DISCHARGE MEDICATIONS: Med recon list noted. /[id number] JEFFERSON/GISELLA
== END 2019-09-25 11:10 | disposition home or self-care (01) | DRG 948 ==
LOC: FB.MS 11:06
PROVIDERS: ADMIT Family Medicine; ATTEND Family Medicine
DX: R53.81 Other malaise (principal); C34.90 Malignant neoplasm of unspecified part of unspecified bronchus or lung; N18.4 Chronic kidney disease, stage 4 (severe); I13.0 Hypertensive heart and chronic kidney disease with heart failure and stage 1 through stage 4 chronic kidney disease, or unspecified chronic kidney disease; J44.9 Chronic obstructive pulmonary disease, unspecified; E78.00 Pure hypercholesterolemia, unspecified; Z66 Do not resuscitate; Z51.5 Encounter for palliative care; I48.91 Unspecified atrial fibrillation; E11.22 Type 2 diabetes mellitus with diabetic chronic kidney disease; D63.1 Anemia in chronic kidney disease; M10.9 Gout, unspecified; I50.9 Heart failure, unspecified; I25.10 Atherosclerotic heart disease of native coronary artery without angina pectoris; M54.9 Dorsalgia, unspecified; M54.2 Cervicalgia; G89.29 Other chronic pain; K76.89 Other specified diseases of liver; Z96.0 Presence of urogenital implants; Z79.4 Long term (current) use of insulin; Z79.890 Hormone replacement therapy; Z79.899 Other long term (current) drug therapy; Z90.710 Acquired absence of both cervix and uterus; Z90.49 Acquired absence of other specified parts of digestive tract
CPT/HCPCS: 36415; 80048; 82947; 82962; 85025; 85027; 97110-GO; 97110-GP; 97116-GP; 97161-GP; 97165-GO; 97530-GO; 97535-GO; A9270-GY; J1815; J1815-GY; J8540